=== PATIENT | female | born 1945 | race Caucasian/White ===

== ENCOUNTER 2017-03-01 14:19 | Outpatient (CLI) | payer MEDICARE ==
--- NOTE | 2017-03-01 15:34 | Diagnostic Imaging Report ---
Indication: Pain, fever, congestion Technique: Multiple views of the maxillofacial sinuses Comparison: none Findings: Maxillofacial sinuses are grossly clear. No worrisome sinus opacification or air-fluid levels are demonstrated. Impression: Negative. Consider maxillofacial sinus CT for more sensitive evaluation if there is high clinical suspicion
== END 2017-03-01 16:19 | disposition home or self-care (01) ==
LOC: RAD 14:19
DX: R50.9 Fever, unspecified (principal)
CPT/HCPCS: 70220